=== PATIENT | female | born 1990 | race Caucasian/White ===

== ENCOUNTER 2020-04-27 08:00 | Outpatient (RCR) | payer OTHER ==
[~2020-04-27 08:00] MED LIST: NO HOME MEDICATIONS; PERCOCET 325 MG1 TA2 PO
== END 2020-06-05 13:13 | disposition home or self-care (01) ==
LOC: WSOH 08:00
DX: S60.511A Abrasion of right hand, initial encounter (principal); S60.512A Abrasion of left hand, initial encounter; S00.81XA Abrasion of other part of head, initial encounter; S40.021A Contusion of right upper arm, initial encounter; Y04.1XXA Assault by human bite, initial encounter; F17.210 Nicotine dependence, cigarettes, uncomplicated; F41.8 Other specified anxiety disorders; Y99.0 Civilian activity done for income or pay